=== PATIENT | male | born 1930 | race African-American/Black ===

== ENCOUNTER 2016-08-24 14:59 | Emergency (ER) | payer MEDICARE, OTHER ==
[~2016-08-24] VITALS: Ht 182.9 cm; Wt 103.0 kg
[2016-08-24] MEDS ORDERED: WARF5TAB PO (15:47)
[2016-08-24] MEDS ORDERED: LOSA25TA5 PO (15:47)
[2016-08-24] MEDS ORDERED: HYDR-3138 PO (15:47)
[2016-08-24] MEDS ORDERED: POTA10TA90 PO (15:47)
[2016-08-24] MEDS ORDERED: INSU100C SQ-INSULIN (15:47)
[2016-08-24] MEDS ORDERED: ATOR40TA PO (15:47)
[2016-08-24] MEDS ORDERED: INSU100V8 SQ (15:47)
[2016-08-24] MEDS ORDERED: TAMS-11 PO (15:47)
[2016-08-24] MEDS ORDERED: FURO-92 PO (15:47)
[2016-08-24] MEDS ORDERED: LINA5TAB PO (15:47)
[2016-08-24 16:44] LABS: BLOOD UREA NITROGEN 31 mg/dL (7-18)
[2016-08-24 16:50] LABS: IS PT STATUS REG ER OR PRE ER? YES
[2016-08-24 18:36] VITALS: BP 147/66
== END 2016-08-24 18:38 | disposition home or self-care (01) ==
LOC: ED 18:30
DX: R55 Syncope and collapse (principal); E11.9 Type 2 diabetes mellitus without complications; E78.00 Pure hypercholesterolemia, unspecified; I48.2 Chronic atrial fibrillation; Z79.4 Long term (current) use of insulin
CPT/HCPCS: 36415; 71010; 80048; 82040; 84484; 85025; 85610; 93005